=== PATIENT | male | born 1970 | race African-American/Black ===

== ENCOUNTER 2023-08-07 11:14 | Inpatient (IN) | payer OTHER ==
[2023-08-07 12:39] VITALS: BMI 20.3
[2023-08-07] MEDS ORDERED: diazePAM 5 MG TABLET PO PRN (13:05)
[2023-08-07] MEDS ORDERED: MAG HYDROX/AL HYDROX/SIMETH 30 ML UNIT-DOSE CUP PO PRN (13:07)
[2023-08-07] MEDS ORDERED: IBUPROFEN 600 MG TABLET (FP) PO PRN (13:07)
[2023-08-07] MEDS ORDERED: BENZOCAINE/MENTHOL (CHLORASEPTIC ) LOZENGE MM PRN (13:07)
[2023-08-07] MEDS ORDERED: MAGNESIUM HYDROX 2400MG/30ML ORAL SUSPENSION 30 ML CUP PO PRN (13:07)
[2023-08-07] MEDS ORDERED: ONDANSETRON *ODT* 4 MG TABLET SL PRN (13:07)
[2023-08-07] MEDS ORDERED: NICOTINE POLACRILEX 2 MG LOZENGE BC PRN (13:07)
[2023-08-07] MEDS ORDERED: POLYETHYLENE GLYCOL (HEALTHYLAX) 3350 17 GM PACKET PO PRN (13:07)
[2023-08-07] MEDS ORDERED: NICOTINE POLACRILEX 2 MG GUM BUC PRN (13:07)
[2023-08-07] MEDS ORDERED: ACETAMINOPHEN 325 MG TABLET (FP) PO PRN (13:07)
[2023-08-07] MEDS ORDERED: guaiFENesin 600 MG TABLET.ER (FP) PO PRN (13:07)
[2023-08-07] MEDS ORDERED: LOPERAMIDE HCL 2 MG CAPSULE PO PRN (13:07)
[2023-08-07] MEDS ORDERED: BENZONATATE 200 MG CAPSULE PO PRN (13:07)
[2023-08-07] MEDS ORDERED: BISMUTH SUBSALICYLATE 524 MG/30 ML PO PRN (13:07)
[2023-08-07] MEDS ORDERED: DICYCLOMINE HCL 10 MG CAPSULE PO PRN (13:07)
[2023-08-07] MEDS ORDERED: IBUPROFEN 400 MG TABLET (FP) PO PRN (13:07)
[2023-08-07] MEDS: amLODIPine BESYLATE 5 MG TABLET (FP) PO SCH (16:00)
[2023-08-07] MEDS: diazePAM 5 MG TABLET PO SCH (17:41)
[2023-08-07] MEDS: MELATONIN 5 MG TABLETS PO SCH (22:34)
[2023-08-07] MEDS: THIAMINE 100 MG TABLET PO SCH (22:34)
[2023-08-07] MEDS: METHOCARBAMOL 500 MG TABLET PO PRN (22:35)
[2023-08-08] MEDS: PRENATAL VITAMINS W/ FOLIC ACID TABLET (FP) PO SCH (10:45)
[2023-08-08] MEDS: FOLIC ACID 1 MG TABLET (FP) PO SCH (10:45)
[2023-08-08] MEDS: cloNIDine HCL 0.1 MG TABLET PO PRN (14:15)
[2023-08-09] MEDS: diazePAM 5 MG TABLET PO SCH (05:54)
[2023-08-09] MEDS ORDERED: amLODIPine BESYLATE 10 MG TABLET (FP) PO ONE (17:33)
[2023-08-09] MEDS: amLODIPine BESYLATE 5 MG TABLET (FP) PO ONE (17:54)
[2023-08-09] MEDS: hydrOXYzine PAMOATE 25 MG CAPSULE (FP) PO PRN (22:10)
[2023-08-10] MEDS: diazePAM 5 MG TABLET PO ONE (05:49)
[2023-08-10 09:18] VITALS: BP 139/87; PULSE 76; RESP 17; TEMP 98.2
[2023-08-10] MEDS: amLODIPine BESYLATE 10 MG TABLET (FP) PO SCH (09:47)
[2023-08-10 11:48] LABS: HEMATOCRIT 33.2 % (35.4-49); MCH 35.3 pg (25.7-33.7); MEAN CELL VOLUME 106.9 fl (80-96); MEAN PLT VOLUME 10.8 fl (7.5-11.1); PLATELET COUNT 90 10^3/uL (134-434); RBC 3.11 M/mm3 (4.00-5.60); WHITE BLOOD COUNT 4.6 K/mm3 (4.0-10.0)
[2023-08-10 11:50] LABS: POTASSIUM 3.9 mmol/L (3.5-5.1)
[2023-08-10 11:54] LABS: ALBUMIN 3.2 g/dl (3.4-5.0)
[2023-08-10 11:57] LABS: CALCIUM 8.9 mg/dL (8.5-10.1); CREATININE 0.6 mg/dL (0.55-1.3)
[2023-08-10 11:59] LABS: BILIRUBIN,TOTAL 0.3 mg/dL (0.2-1); TOT PROT 6.5 g/dl (6.4-8.2)
== END 2023-08-10 10:12 | disposition home or self-care (01) | DRG 775 ==
LOC: YASAS 11:14 → Y3N 13:37
PROVIDERS: ADMIT Allergy & Immunology; ATTEND Surgery
PROC: HZ2ZZZZ Detoxification Services for Substance Abuse Treatment (ICD-10-PCS; principal; 2023-08-07)
DX: F10.230 Alcohol dependence with withdrawal, uncomplicated (principal); F17.210 Nicotine dependence, cigarettes, uncomplicated; F32.A Depression, unspecified; I10 Essential (primary) hypertension
CPT/HCPCS: 36415; 80053; 80305; 80307; 85027; 86780; 93005; 93010